=== PATIENT | male | born 1990 | race Caucasian/White ===

== ENCOUNTER 2019-02-20 08:12 | Emergency (ER) | payer MEDICAID, SELFPAY ==
[2019-02-20 08:14] VITALS: BP 110/67; PULSE 85; RESP 16; TEMP 36.8; O2SAT 100; BMI 24.8
[2019-02-20 08:16] VITALS: O2SAT 100
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
[2019-02-20] MEDS: Ketorolac 30 MG/ML Syringe IV (08:29)
[2019-02-20] MEDS: 0.9% Normal Saline 1,000 ML 150 ML IV (09:10)
--- NOTE | 2019-02-20 09:48 | ED.RN ---
ICE PACKS PLACED TO LOWER BACK AND C-COLLAR REMOVED BY DR PANDEY.
[2019-02-20 10:26] VITALS: BP 124/61; PULSE 83; RESP 16; O2SAT 94
== END 2019-02-20 10:30 | disposition home or self-care (01) ==
PROVIDERS: Emergency Provider Emergency Medicine
DX: S32.029A Unspecified fracture of second lumbar vertebra, initial encounter for closed fracture (principal); V43.02XA Car driver injured in collision with other type car in nontraffic accident, initial encounter; Y93.9 Activity, unspecified; Y92.410 Unspecified street and highway as the place of occurrence of the external cause; Y99.9 Unspecified external cause status; F17.200 Nicotine dependence, unspecified, uncomplicated; F11.10 Opioid abuse, uncomplicated
CPT/HCPCS: 70450; 71250; 72125; 74176; 96361; 96374; 99285; J7030; A4216